=== PATIENT | female | born 1955 | race Caucasian/White ===

== ENCOUNTER 2018-11-13 14:15 | Inpatient (IN) | payer OTHER ==
[~2018-11-13] VITALS: Ht 165.1 cm; Wt 79.4 kg
[~2018-11-13 14:15] MED LIST: COZAAR25 MG PO; SINGULAIR10 MG PO; XOPENEX HFA15 GM IH
== END 2018-11-22 17:36 | disposition home or self-care (01) | DRG 331 ==
LOC: SURG 11-19 06:35 → O/R 11-19 06:35 → SURG 11-19 12:00 → SURH 11-19 14:15 → SURG 11-22 17:36
PROVIDERS: ADMIT Colon & Rectal Surgery
PROC: 0DJD8ZZ Inspection of Lower Intestinal Tract, Via Natural or Artificial Opening Endoscopic (ICD-10-PCS; 2018-11-19)
PROC: 0DTN4ZZ Resection of Sigmoid Colon, Percutaneous Endoscopic Approach (ICD-10-PCS; principal; 2018-11-19 21:00)
DX: K57.32 Diverticulitis of large intestine without perforation or abscess without bleeding (principal); I11.9 Hypertensive heart disease without heart failure; J45.20 Mild intermittent asthma, uncomplicated